=== PATIENT | female | born 1970 | race Two or more races ===

== ENCOUNTER 2016-12-09 19:41 | Emergency (ER) | payer MEDICAID ==
[~2016-12-09] VITALS: Ht 160 cm; Wt 66.5 kg
[2016-12-09 19:56] VITALS: Ht 160 cm; Wt 66.5 kg
--- NOTE | 2016-12-09 20:02 | EN ---
Date/Time of Note Date/Time of Note DATE: 12/09/16 TIME: 20:01 ER Progress Note This 46-year-old female presents to emergency department for complaints of cough and wheezing for 3 days, today, she is wheezing, complains of shortness of breath. Upon initial evaluation here in the medical examination, patient's lungs are auscultated and was wheezing, patient needs further treatment and evaluation, awaiting bed for ER2 at this time, patient is stable at this time, no symptoms of respiratory distress DENISE WHITE NP Dec 09, 2016 20:02
[2016-12-09] MEDS ORDERED: ALBUTEROL 0.5% (NEB) 2.5 MG/0.5 ML AMP INH STA (20:18)
[2016-12-09] MEDS ORDERED: predniSONE 20 MG TAB PO STA (20:18)
[2016-12-09] MEDS ORDERED: IPRATROPIUM (NEB) 0.5 MG/2.5 ML AMP INH STA (20:18)
--- NOTE | 2016-12-09 20:43 | RADRPT ---
PROCEDURE: XR Chest AP portable CLINICAL INDICATION: Asthma exacerbation TECHNIQUE: An AP portable radiograph of the chest was submitted. COMPARISON: 02/03/2015 FINDINGS: Support Hardware: None Cardiovascular: The cardiovascular silhouette appears unremarkable. Lung Ahuja: The lung ahuja appear clear with no nodule, alveolar infiltrate, or interstitial promi nence evident. Pleural Spaces: No pneumothorax or pleural effusion is identified. Osseous Structures: The osseous structures appear intact. Soft Tissues: The soft tissues appear unremarkable. IMPRESSION: Stable and unremarkable portable chest. Physician Franchesca Date Time Electronically viewed and signed by Ford Velazco Physician on 12/09/2016 20:42 RH/
[2016-12-09 22:40] VITALS: BP 112/68; PULSE 104; RESP 16; TEMP 99.3
[2016-12-09] MEDS ORDERED: PRED20TA PO (22:53)
[2016-12-09] MEDS ORDERED: ALBU18HF INHALATION (22:53)
--- NOTE | 2016-12-09 23:28 | ERD ---
ER Documentation Chief Complaint Date/Time DATE: 12/09/16 TIME: 23:26 Chief Complaint cough x 3 days HPI Patient is a 46-year-old female with no medical problems who presents with a cough and shortness of breath. She started with these symptoms 3 days ago. She has headache. She denies fevers. She has had no treatment as of yet. The symptoms are constant. Upon review of old medical records this the patient ninth visit to the ER since 2006. She does not currently have a primary doctor. ROS All systems reviewed and are negative except as per history of present illness. Medications Home Meds Active Scripts Prednisone* (Prednisone*) 20 Mg Tab, 60 MG PO DAILY for 4 Days, TAB Prov:MAISHA WOODS MD 12/09/16 Albuterol Sulfate* (Ventolin HFA*) 18 Gm Hfa.aer.ad, 2 PUFF INHALATION Q4H, #1 INHALER Prov:MAISHA WOODS MD 12/09/16 Allergies Allergies: Coded Allergies: No Known Drug Allergy (Verified Allergy, Unknown, 02/03/15) PMhx/Soc Medical and Surgical Hx: pt denies Medical Hx History of Surgery: Yes (GALLBLADDER SURGERY) Anesthesia Reaction: No Hx Neurological Disorder: No Hx Respiratory Disorders: No Hx Cardiac Disorders: No Hx Psychiatric Problems: No Hx Miscellaneous Medical Probl: No Hx Alcohol Use: No Hx Substance Use: No Hx Tobacco Use: No Smoking Status: Never smoker FmHx Family History: No diabetes Physical Exam Vitals Vital Signs Date Time Temp Pulse Resp B/P Pulse Ox O2 Delivery O2 Flow Rate FiO2 12/09/16 22:40 99.3 104 16 112/68 100 Room Air 12/09/16 20:36 68 26 100 21 12/09/16 19:56 99.2 80 20 134/80 99 Physical Exam Const: Moderate distress secondary to shortness of breath Head: Atraumatic Eyes: Normal Conjunctiva ENT: Normal External Ears, Nose and Mouth. Neck: Full range of motion..~ No meningismus. Resp: Tachypnea with diffuse wheezing Cardio: Regular rate and rhythm, no murmurs Abd: Soft, non tender, non distended. Normal bowel sounds Skin: No petechiae or rashes Back: No midline or flank tenderness Ext: No cyanosis, or edema Neur: Awake and alert Psych: Normal Mood and Affect Results 24 hrs Current Medications Medications (Trade) Dose Ordered Sig/[place] Route PRN Reason Start Time Stop Time Status Last Admin Dose Admin Albuterol (Proventil 0.5% (Neb)) 15 mg ONCE STAT INH 12/09/16 20:18 12/09/16 20:19 DC 12/09/16 20:35 Ipratropium Couch (Atrovent 0.02% (Neb)) 1 mg ONCE STAT INH 12/09/16 20:18 12/09/16 20:19 DC 12/09/16 20:35 Prednisone (Prednisone) 60 mg ONCE STAT PO 12/09/16 20:18 12/09/16 20:19 DC 12/09/16 20:27 Procedures/MDM Chest x-ray negative per radiology. Patient is a 46-year-old female who presents with cough and wheezing. The patient is wheezing diffusely. The patient was given albuterol, Atrovent, and prednisone. She feels much better and her wheezing is gone. She is no longer tachypneic. She denies asthma although this did seem like an asthma exacerbation. Therefore I believe it is likely reactive airway disease I think she would benefit from Ventolin and prednisone. I will give her prescriptions for this. This may have been a viral bronchitis which triggered airway inflammation. At this point I doubt pneumonia, pneumothorax, or pulmonary embolism. I believe outpatient management is appropriate but the patient will need to follow-up with a primary doctor the local clinics within 4-48 hours for reevaluation. She can return sooner for any worsening symptoms. Departure Diagnosis: Primary Impression: Reactive airway disease Asthma severity: unspecified severity Asthma complication type: with acute exacerbation Qualified Code: J45.901 - Reactive airway disease, unspecified asthma severity, with acute exacerbation Condition: Fair Patient Instructions: Bronchitis With Wheezing (Adult) [facility] Usted se jones hecho un examen mdico de control que le indica que no est en soren condicin que requiera tratamiento urgente en el Departamento de Emergencia. Un estudio ms profundo y el tratamiento de garcía condicin pueden esperar sin ningn riesgo hasta que usted sea atendida/o en el consultorio de garcía mdico o soren cl rubén. Es responsabilidad suya arreglar soren xavi para el seguimiento del concetta. MANEJO DE CONDICIONES NO URGENTES EN EL FUTURO 1) Si usted tiene un mdico de atencin primaria: Usted debera llamar a garcía mdico de atencin primaria antes de venir al departamento de emergencia. Despus de las horas de consultorio, garcía doctor o garcía asociado/a est disponible por telfono. El mdico o enfermero de david en el servicio telefnico puede asesorarle por eva medio para atender el problema, o concetta contrario se puede programar soren xavi. 2) Si usted no tiene un mdico de atencin primaria: Llame al mdico o clnica de referencia que aparece abajo herbie las horas de consultorio para hacer soren xavi para que le vean. CLINICAS: [place] [phone] [facility] [phone] [facility] [phone] [facility] [place] [id number] [phone] [facility] [place] [id number] [phone] [facility]. [phone] [address] Additional Instructions: Llame al doctor MAANA y basil soren XAVI PARA DENTRO DE 1-2 COFFMAN.Dgale a la secretaria que nosotros le instruimos hacer esta xavi.Avise o llame si garcía condicin se empeora antes de la xavi. Regresa aqui si peor o no mejor. MAISHA WOODS MD Dec 09, 2016 23:28
== END 2016-12-09 23:17 | disposition home or self-care (01) ==
LOC: FTE 19:41
DX: J45.901 Unspecified asthma with (acute) exacerbation (principal)
CPT/HCPCS: 71010; 94644; J7512; Z7502; Z7610